=== PATIENT | female | born 1955 | race Caucasian/White ===

== ENCOUNTER 2023-08-23 08:31 | Day surgery (SDC) | payer BC ==
[2023-08-19 16:12] VITALS: BMI 32.6
[2023-08-23] MEDS ORDERED: BUPIVACAINE HCL/PF 0.5% (5MG/ML) 10 ML VIAL ONE ×2 (08:57→09:34)
[2023-08-23] MEDS ORDERED: LIDOCAINE HCL 2% (20ML MULTI-DOSE VIAL) ONE (08:57)
[2023-08-23] MEDS ORDERED: MIDAZOLAM HCL 2 MG/2 ML SINGLE DOSE VIAL ONE (09:45)
[2023-08-23] MEDS ORDERED: PROPOFOL 20 ML ONE ×3 (09:45→11:24)
[2023-08-23] MEDS ORDERED: SODIUM CHLORIDE 0.9% P/F 10 ML VIAL IJ ONE (09:46)
[2023-08-23] MEDS ORDERED: ceFAZolin SODIUM 1 GM VIAL ONE (09:46)
[2023-08-23] MEDS ORDERED: LIDOCAINE HCL/PF 2% SDV 5ML VIAL ONE (09:46)
[2023-08-23] MEDS ORDERED: KETOROLAC TROMETHAMINE 30 MG/1 ML VIAL ONE (11:51)
[2023-08-23 13:15] VITALS: PULSE 59; TEMP 97.7
[2023-08-23 13:40] VITALS: BP 122/65; RESP 18
== END 2023-08-23 13:46 | disposition home or self-care (01) ==
LOC: FASU-ENDO 08:31 → FASU 08:31
PROVIDERS: ATTEND Podiatrist Foot Surgery
PROC: 0QP104Z Removal of Internal Fixation Device from Sacrum, Open Approach (ICD-10-PCS; principal; 2023-08-23 10:27)
PROC: 0QBP0ZZ Excision of Left Metatarsal, Open Approach (ICD-10-PCS; 2023-08-23 10:27)
PROC: 0SRQ0JZ Replacement of Left Toe Phalangeal Joint with Synthetic Substitute, Open Approach (ICD-10-PCS; 2023-08-23 10:27)
DX: T84.84XA Pain due to internal orthopedic prosthetic devices, implants and grafts, initial encounter (principal); Y79.1 Therapeutic (nonsurgical) and rehabilitative orthopedic devices associated with adverse incidents; Y92.9 Unspecified place or not applicable; M21.612 Bunion of left foot; M20.42 Other hammer toe(s) (acquired), left foot
CPT/HCPCS: 73630-TC-LT; 88300-TC; 88304-TC; 88311-TC; 94760; C1713